=== PATIENT | female | born 1975 | race Caucasian/White ===

== ENCOUNTER 2020-10-17 12:05 | Emergency (ER) | payer OTHER | END 2020-10-17 14:10 | disposition left against medical advice (07) | LOC: FER 12:05 | DX: M14.672 Charcot's joint, left ankle and foot (principal); S91.302A Unspecified open wound, left foot, initial encounter; R50.9 Fever, unspecified; F17.210 Nicotine dependence, cigarettes, uncomplicated; Z88.0 Allergy status to penicillin; Z88.8 Allergy status to other drugs, medicaments and biological substances; X58.XXXA Exposure to other specified factors, initial encounter | CPT/HCPCS: 99283 ==

== ENCOUNTER 2021-11-06 18:23 | Emergency (ER) | payer OTHER ==
[2021-11-06 19:21] LABS: BASOPHIL 0.4 % (0-2); EOSINOPHIL 0.8 % (0-5); HGB 13.9 g/dl (12.5-16.0); LYMPHOCYTE 17.2 % (15-48); MCH 30.9 pg (25.0-31.0); MCHC 33.1 g/dL (32.0-36.0); MCV 93.3 fL (78.0-100.0); MONOCYTE 5.3 % (0-12); MPV 9.6 fL (6.0-9.5); NEUTROPHIL 75.5 % (41-80); NRBC 0; PLT 268 K/uL (150-400); RDW 13.8 % (11.5-14.0); WBC 16.9 K/uL (4.0-10.5)
[2021-11-06 19:37] LABS: ALBUMIN 3.4 g/dL (3.4-5.0); BILIRUBIN - TOTAL 0.9 mg/dL (0.2-1.0); BUN/CREAT RATIO (CALC) 14.1 RATIO; CREATININE 0.78 mg/dL (0.51-0.95); GLOBULIN (CALCULATION) 4.2 g/dL; POTASSIUM 3.4 mmol/L (3.5-5.1); TOTAL PROTEIN 7.6 g/dL (6.4-8.2)
[2021-11-06 19:40] LABS: LACTIC ACID 2.8 mmol/L (0.4-1.9)
[2021-11-06 19:50] LABS: INR 1.15 (0.9-1.2); PROTHROMBIN TIME 14.4 SECONDS (11.9-13.9); PTT 36.2 SECONDS (24.9-34.6)
[2021-11-06 19:54] LABS: BILIRUBIN 1+ mg/dL (NEGATIVE); BLOOD 2+ Ery/uL (NEGATIVE); CLARITY HAZY (CLEAR); COLOR YELLOW (YELLOW); GLUCOSE (U) NORMAL (NORMAL); LEUKOCYTES NEGATIVE Leu/uL (NEGATIVE); NITRITE NEGATIVE (NEGATIVE); PROTEIN 2+ mg/dL (NEGATIVE); SPECIFIC GRAVITY >=1.030 (1.001-1.030)
[2021-11-06 20:02] LABS: BACTERIA 3+
[2021-11-06 20:04] LABS: MUCOUS MODERATE
[2021-11-06 22:07] LABS: CORONAVIRUS 2019 SARS-COV-2 NEGATIVE (NEGATIVE); INFLUENZA A NAA NEGATIVE (NEGATIVE)
== END 2021-11-07 02:45 | disposition other institution (70) ==
LOC: FER 18:23
PROVIDERS: Internal Medicine
DX: A41.9 Sepsis, unspecified organism (principal); L03.115 Cellulitis of right lower limb; R91.8 Other nonspecific abnormal finding of lung field; I10 Essential (primary) hypertension; F17.210 Nicotine dependence, cigarettes, uncomplicated; Z20.822 Contact with and (suspected) exposure to COVID-19; Z88.1 Allergy status to other antibiotic agents; Z88.8 Allergy status to other drugs, medicaments and biological substances; Z79.899 Other long term (current) drug therapy
CPT/HCPCS: 36415; 71275; 73700; 80053; 81001; 83605; 83690; 84145; 84484; 85025; 85610; 85730; 87040; 93005; J1170; J2020; J2060; J2185; J2550; J7030; Q9967; U0002